=== PATIENT | female | born 1985 | race African-American/Black ===

== ENCOUNTER 2018-05-14 06:52 | Emergency (ER) | payer SELFPAY ==
[2018-05-14 07:19] VITALS: BMI 21.6
[2018-05-14] MEDS ORDERED: ACETAMINOPHEN 325 MG TABLET (FP) PO ONE (08:09)
[2018-05-14] MEDS ORDERED: IBUPROFEN 600 MG TABLET (FP) PO ONE ×2 (08:11→08:31)
--- NOTE | 2018-05-14 08:11 | PDOC ---
History of Present Illness - General Chief Complaint: Urinary Problem Stated Complaint: URINARY PROBLEM Time Seen by Provider: 05/14/18 07:30 History Source: Patient Exam Limitations: No Limitations - History of Present Illness Initial Comments: 05/14/18 08:11 Webb 32 YOF no medical history presenting with urinary frequency, urgency, dysuria and suprapubic pain x 2 days. Sharp suprapubic Pain /, taken tylenol previously with some relief. No fever or chills, dizziness or weakness.. No n/v/d, back pain. LMP 1 week ago, no bleeding or discharge. Sexually active with one partner, no STD concern. Denies tobacco or etoh use. 05/14/18 08:15 Past History - Past Medical History Allergies/Adverse Reactions: Allergies Allergy/AdvReac Type Severity Reaction Status Date / Time Penicillins Allergy Intermediate Hives Verified 05/14/18 08:54 sulfamethoxazole Allergy Intermediate Hives Verified 05/14/18 07:13 [From Bactrim] trimethoprim [From Bactrim] Allergy Intermediate Hives Verified 05/14/18 07:13 amoxicillin [Amoxicillin] Allergy Hives Verified 05/14/18 07:13 Home Medications: Ambulatory Orders Cephalexin Monohydrate [Keflex -] 500 mg PO Q8H 10 Days #30 capsule 05/14/18 Phenazopyridine HCl [Pyridium -] 100 mg PO BID PRN #6 tablet 05/14/18 COPD: No - Surgical History Abdominal Surgery: Yes (FIBROIDS REMOVED, 2 TIMES) - Reproductive History Is Patient Now?: No Cervical CA: No Dysfunctional Uterine Bleeding: No Ectopic : No Endometrial CA: No Polycystic Ovaries: No Therapeutic (s) & number: No Tubal Ligation: No - Suicide/Smoking/Psychosocial Hx Smoking Status: No Smoking History: Former smoker Have you smoked in the past 12 months: Yes Number of Cigarettes Smoked Daily: 1 Information on smoking cessation initiated: No Hx Alcohol Use: No Drug/Substance Use Hx: No Substance Use Type: None Review of Systems - Review of Systems Able to Perform ROS?: Yes Comments:: 05/14/18 08:12 Constitutional: no fevers or chills. HEENT: no headache or dizziness. CVS: no cp or syncope. Resp: no sob. Abdomen: +abdominal pain, No nausea or vomiting. : + dysuria, frequency and urgency. no hematuria or discharge/VB. MUSCULOSKELETAL: No joint pain and swelling. No neck or back pain. SKIN: no redness or skin changes, no discharge, no rash. Hematologic: no easy bruising/bleeding. NEUROLOGIC: No headache, dizziness, LOC or altered mental status. No weakness, numbness or tingling. All other systems reviewed and negative, or as documented in HPI. 05/14/18 09:16 *Physical Exam - Vital Signs Last Vital Signs Temp Pulse Resp BP Pulse Ox 97.6 F 107 H 18 123/78 100 05/14/18 07:15 05/14/18 07:15 05/14/18 07:15 05/14/18 07:15 05/14/18 07:15 - Physical Exam Comments: 05/14/18 08:13 General: Well appearing, awake and alert, NAD. HEENT: NCAT, PERRL, EOMI, clear conjunctiva, anicteric, moist mucus membranes, clear oropharynx, no oral lesions.. Neck: neck supple, FROM Resp: CTAB, normal and even respirations, no respiratory distress CVS: RRR, no murmurs, 2+ peripheral pulses throughout, no peripheral edema Abdomen: soft, +suprapubic tenderness, no peritoneal signs. no rebound or guarding Back: very mild right CVAT, normal inspection and ROM MSK: no edema, DRAPER x4, ROM intact. No clubbing or cyanosis. normal bulk and tone. Neuro: alert, oriented appropriately Skin: warm and well perfused, cap refill <2 sec, normal color Medical Decision Making - Medical Decision Making 05/14/18 08:11 Webb 32 YOF no medical history presenting with urinary frequency, urgency, dysuria and suprapubic pain x 2 days. No fevers, n/v/d, back pain. LMP 1 week ago, no bleeding or discharge. Sexually active with one partner, no STD concern. Denies tobacco or etoh use. Vitals wnl, mild tachy from pain. no fever, nontoxic appearing, tolerating PO. Given tylenol and ibuprofen for pain control. repeat VS improved, remains well appearing Most likely UTI with clinical sx, ?early pyelo with right flank ttp on percussion, but no rebound or guarding, abdomen with mild suprapubic tenderness. UA grossly positive with Leuk esterase and nitrites and WBCs, f/u urine culture. Dispo: Pt informed of my clinical impression, treatment recommendations and disposition plan. Rx pyridium x 3 days and keflex x 10 day course, to cover for early pyelo. nontoxic appearing, pyelo precautions given including worsneing signs of infection. All questions answered to patient's satisfaction and expressed understanding and comfort with this. Reasons for returning to the ED sooner discussed with the patient otherwise, follow up with primary care physician, solar process engineer & PMD referrals given. At the time of discharge, the patient is alert, clinically improved, tolerating po and verbalizes understanding of instructions. 05/14/18 09:16 *DC/Admit/Observation/Transfer Diagnosis at time of Disposition: UTI (urinary tract infection) - Discharge Dispostion Disposition: HOME Condition at time of disposition: Good Decision to Admit order: No - Prescriptions Prescriptions: Cephalexin Monohydrate [Keflex -] 500 mg PO Q8H 10 Days #30 capsule Phenazopyridine HCl [Pyridium -] 100 mg PO BID PRN #6 tablet PRN Reason: Pain Level 4 - 6 - Referrals Referrals: Blake Emmanuel MD [Staff Physician] - Bob Moy MD [Staff Physician] - [facility] [place] [facility] [Provider Group] - Patient Instructions Printed Discharge Instructions: DI for Urinary Tract Infection (UTI) Additional Instructions: your urine revealed an infection. Follow up with your physician and consultants as instructed, referrals with gynecology and primary doctor., take your medications as instructed including keflex three times a day x 10 days, monitor for signs of allergy including rash or difficulty breathing or airway involvement, stop if it does cause these life threatening symptoms.; may cause nausea and vomiting. Return if worsening symptoms including fevers, headache, vomiting, worsening flank or abdominal pain, chest pain, shortness of breath, syncope, dehydration, inability to take things by mouth/vomiting, altered mental status, or worsening concerning symptoms, which could indicate worsening infection affecting your kidneys. your medications on discharge include pyridium which may cause your urine yellow/orange for 3 days maximum as needed for urinary pain; keflex is an antibiotic for the infection. side effects may include upset stomach, abdominal pain, vomiting, or diarrhea. do not drink alcohol with your medications. - Post Discharge Activity
[2018-05-14 08:12] LABS: HCG,QUALITATIVE URINE Negative; URINE APPEARANCE TURBID; URINE BILIRUBIN NEGATIVE (<2.0 mg/dL); URINE COLOR AMBER; URINE GLUCOSE (UA) NEGATIVE (NEGATIVE); URINE KETONE NEGATIVE (NEGATIVE); URINE NITRITE POSITIVE (NEGATIVE)
[2018-05-14] MEDS ORDERED: ACETAMINOPHEN 325 MG TABLET (FP) ONE (08:31)
[2018-05-14 08:38] LABS: URINE LEUK ESTERASE 2+ (NEGATIVE); URINE PROTEIN 3+ (NEGATIVE)
[2018-05-14] MEDS ORDERED: CEPHALEXIN MONOHYDRATE 500 MG CAPSULE (UD) PO ONE (08:49)
[2018-05-14 08:51] LABS: EPI CELLS RARE /HPF (FEW); URINE BACTERIA MANY /hpf (NONE SEEN); URINE MUCUS FEW
[2018-05-14] MEDS ORDERED: CEPHALEXIN MONOHYDRATE 500 MG CAPSULE (UD) ONE (08:53)
[2018-05-14 09:13] VITALS: BP 109/85; PULSE 82; TEMP 98
== END 2018-05-14 09:20 | disposition home or self-care (01) ==
LOC: JER 06:52
DX: N39.0 Urinary tract infection, site not specified (principal); B96.89 Other specified bacterial agents as the cause of diseases classified elsewhere; Z88.0 Allergy status to penicillin; Z88.2 Allergy status to sulfonamides
CPT/HCPCS: 81003; 81015; 84703; 87086; 87186; 99283-25

== ENCOUNTER 2018-08-18 18:57 | Emergency (ER) | payer SELFPAY ==
[2018-08-18 19:07] VITALS: BP 115/51; PULSE 105; TEMP 98.5; BMI 21.2
--- NOTE | 2018-08-18 21:00 | PDOC ---
History of Present Illness - General Chief Complaint: Abscess Boil Stated Complaint: Abscess Boil Time Seen by Provider: 08/18/18 20:00 History Source: Patient Exam Limitations: No Limitations - History of Present Illness Initial Comments: 08/18/18 20:57 HISTORY OF PRESENT ILLNESS: No recent travel or sick contacts. PAST MEDICAL HISTORY: Denies past medical history SURGICAL HISTORY: Denies ALLERGIES: No known drug allergies REVIEW OF SYSTEMS General/Constitutional: Denies fever or chills. Denies weakness, weight change. HEENT: Denies change in vision. Denies ear pain or discharge. Denies sore throat. Cardiovascular: Denies chest pain or shortness of breath. Respiratory: Denies cough, wheezing, or hemoptysis. Gastrointestinal: Denies nausea, vomiting, diarrhea or constipation. Denies rectal bleeding. Genitourinary: Denies dysuria, frequency, or change in urination. Musculoskeletal: Denies joint or muscle swelling or pain. Denies neck or back pain. Skin and breasts: Denies rash or easy bruising. Neurologic: Denies headache, vertigo, loss of consciousness, or loss of sensation. Psychiatric: Denies depression or anxiety. Endocrine: Denies increased thirst. Denies abnormal weight change. Hematologic/Lymphatic: Denies anemia, easy bleeding, or history of blood clots. Allergic/Immunologic: Denies hives or skin allergy. Denies latex allergy. PHYSICAL EXAM General Appearance: Well-appearing, appropriately dressed. No apparent distress , no intoxication. HEENT: EOMI, PERRLA, normal ENT inspection, normal voice, TMs normal, pharynx normal. No conjunctival pallor. No photophobia, scleral icterus. Neck: Supple. Trachea midline. No tenderness, rigidity, carotid bruit, stridor , lymphadenopathy, or thyromegaly. Respiratory/Chest: Lungs CTAB. No shortness of breath, chest tenderness, respiratory distress, accessory muscle use. No crackles, rales, rhonchi, stridor , wheezing, dullness Cardiovascular: RRR. S1, S2. No JVD, murmur, bradycardia, tachycardia. Vascular Pulses: Dorsalis-Pedis (R): 2+, Dorsalis-Pedis (L): 2+ Gastrointestinal/Abdominal: Normal bowel sounds. Abdomen soft, non-distended. No tenderness or rebound tenderness. No organomegaly, pulsatile mass, guarding, hernia, hepatomegaly, splenomegaly. Lymphatic: No adenopathy, tenderness. Musculoskeletal/Extremities: Normal inspection. FROM of all extremities, normal capillary refill. Pelvis Stable. No CVA tenderness. No tenderness to extremities, pedal edema, swelling, erythema or deformity. Integumentary: Appropriate color, dry, warm. No cyanosis, erythema, jaundice or rash Neurologic: rail car maintenance mechanic II-XII intact. Fully oriented, alert. Appropriate mood/affect. Motor strength 5/5. No appreciable EOM palsy, facial droop or sensory deficit. Past History - Past Medical History Allergies/Adverse Reactions: Allergies Allergy/AdvReac Type Severity Reaction Status Date / Time Penicillins Allergy Intermediate Hives Verified 08/18/18 20:16 sulfamethoxazole Allergy Intermediate Hives Verified 08/18/18 20:16 [From Bactrim] trimethoprim [From Bactrim] Allergy Intermediate Hives Verified 08/18/18 20:16 amoxicillin [Amoxicillin] Allergy Hives Verified 08/18/18 20:16 Home Medications: Ambulatory Orders NK [No Known Home Medication] 08/18/18 COPD: No - Surgical History Abdominal Surgery: Yes (FIBROIDS REMOVED, 2 TIMES) - Reproductive History Cervical CA: No Dysfunctional Uterine Bleeding: No Ectopic : No Endometrial CA: No Polycystic Ovaries: No Therapeutic (s) & number: No Tubal Ligation: No - Suicide/Smoking/Psychosocial Hx Smoking Status: No Smoking History: Never smoked Have you smoked in the past 12 months: Yes Number of Cigarettes Smoked Daily: 1 Hx Alcohol Use: No Drug/Substance Use Hx: No Substance Use Type: None *Physical Exam - Vital Signs Last Vital Signs Temp Pulse Resp BP Pulse Ox 98.5 F 105 H 16 115/51 L 100 08/18/18 19:04 08/18/18 19:04 08/18/18 19:04 08/18/18 19:04 08/18/18 19:04 Moderate Sedation - Procedure Monitoring Vital Signs: Procedure Monitoring Vital Signs Temperature 98.5 F 08/18/18 19:04 Pulse Rate 105 H 08/18/18 19:04 Respiratory Rate 16 08/18/18 19:04 Blood Pressure 115/51 L 08/18/18 19:04 O2 Sat by Pulse Oximetry (%) 100 08/18/18 19:04 Procedures - Consent Consent obtained: Verbal, From Patient - Incision and Drainage I&D Site: Right: Bartholin Betadine cleansed: Yes Anesthesia: 2% Lidocaine Volume(ml): 5 Blade Size: 11 Attempts: 1 Plain Packing: No Dressing: No Progress: 08/18/18 20:59 Pt tolerated well. Medical Decision Making - Medical Decision Making 08/18/18 20:57 A/P: 33-year-old female with right sided Bartholin's cyst Exam performed with KARLI Baptiste as academic director Swelling and tenderness noted to the inner labia of the right side of the vagina Fluctuants present No erythema or induration present to area I&D of Bartholin's abscess-see procedure note for details Discharge home *DC/Admit/Observation/Transfer Diagnosis at time of Disposition: Bartholin's gland cyst - Discharge Dispostion Disposition: HOME Condition at time of disposition: Stable Decision to Admit order: No - Referrals - Patient Instructions Additional Instructions: Follow-up with her icu manager for reevaluation within the next 7-10 days. Take Tylenol or Motrin as needed for pain. Follow manufacture's instructions for appropriate dosage. Return to emergency department for any worsening pain, discharge or drainage, any other concerns. Thank you very much for choosing us to provide your emergent health care needs. - Post Discharge Activity
== END 2018-08-18 21:10 | disposition home or self-care (01) ==
LOC: JER 18:57 → JERFT 18:57
PROC: 0U9L0ZZ Drainage of Vestibular Gland, Open Approach (ICD-10-PCS; principal; 2018-08-18)
DX: N75.0 Cyst of Bartholin's gland (principal); N75.1 Abscess of Bartholin's gland
CPT/HCPCS: 99281-25

== ENCOUNTER 2019-04-03 18:12 | Emergency (ER) | payer SELFPAY ==
--- NOTE | 2019-04-03 18:20 | PDOC ---
Rapid Medical Evaluation Time Seen by Provider: 04/03/19 18:19 Medical Evaluation: Allergies Allergy/AdvReac Type Severity Reaction Status Date / Time Penicillins Allergy Intermediate Hives Verified 08/18/18 20:16 sulfamethoxazole Allergy Intermediate Hives Verified 08/18/18 20:16 [From Bactrim] trimethoprim [From Bactrim] Allergy Intermediate Hives Verified 08/18/18 20:16 amoxicillin [Amoxicillin] Allergy Hives Verified 08/18/18 20:16 04/03/19 18:20 CC: right labial swelling PE: deferred Orders: nothing Patient will proceed to ED for continued evaluation. 04/03/19 18:20 Discharge Disposition - Diagnosis Bartholin's gland cyst - Referrals - Patient Instructions - Post Discharge Activity
[2019-04-03 18:22] VITALS: BP 147/81; PULSE 100; TEMP 98.6; BMI 21.7
--- NOTE | 2019-04-03 19:50 | PDOC ---
History of Present Illness - General Chief Complaint: Abscess Boil Stated Complaint: VAGINAL BLEEDING Time Seen by Provider: 04/03/19 18:19 History Source: Patient Exam Limitations: No Limitations Past History - Travel Traveled outside of the country in the last 30 days: No Close contact w/someone who was outside of country & ill: No - Past Medical History Allergies/Adverse Reactions: Allergies Allergy/AdvReac Type Severity Reaction Status Date / Time Penicillins Allergy Intermediate Hives Verified 04/07/19 08:49 sulfamethoxazole Allergy Intermediate Hives Verified 04/07/19 08:49 [From Bactrim] trimethoprim [From Bactrim] Allergy Intermediate Hives Verified 04/07/19 08:49 amoxicillin [Amoxicillin] Allergy Hives Verified 04/07/19 08:49 Home Medications: Ambulatory Orders NK [No Known Home Medication] 08/18/18 Cephalexin Monohydrate [Keflex -] 500 mg PO BID #14 capsule 04/03/19 Ibuprofen 600 mg PO Q6H #30 tablet 04/03/19 COPD: No - Surgical History Abdominal Surgery: Yes (FIBROIDS REMOVED, 2 TIMES) - Reproductive History Cervical CA: No Dysfunctional Uterine Bleeding: No Ectopic : No Endometrial CA: No Polycystic Ovaries: No Therapeutic (s) & number: No Tubal Ligation: No - Suicide/Smoking/Psychosocial Hx Smoking Status: No Smoking History: Never smoked Have you smoked in the past 12 months: Yes Number of Cigarettes Smoked Daily: 1 Hx Alcohol Use: No Drug/Substance Use Hx: No Substance Use Type: None Review of Systems - Review of Systems Able to Perform ROS?: Yes Comments:: 04/03/19 20:34 CONSTITUTIONAL: Absent: fever, chills, diaphoresis, generalized weakness, malaise, loss of appetite HEENT: Absent: rhinorrhea, nasal congestion, throat pain, throat swelling, difficulty swallowing, mouth swelling, ear pain, eye pain, visual Changes GENITOURINARY: Absent: dysuria, frequency, urgency, hesitancy, hematuria, flank pain, genital pain SKIN: Present: bartholin's gland cyst Absent: rash, itching, pallor NEUROLOGIC: Absent: headache, focal weakness or paresthesias, dizziness, unsteady gait, seizure, mental status changes, bladder or bowel incontinence PSYCHIATRIC: Absent: anxiety, depression, suicidal or homicidal ideation, hallucinations. Is the patient limited Swedish proficient: No *Physical Exam - Vital Signs Last Vital Signs Temp Pulse Resp BP Pulse Ox 98.6 F 100 H 16 147/81 100 04/03/19 18:20 04/03/19 18:20 04/03/19 18:20 04/03/19 18:20 04/03/19 18:20 - Physical Exam Comments: 04/03/19 20:48 GENERAL: The patient is awake, alert, and fully oriented, in no acute distress. HEAD: Normal with no signs of trauma. EYES: Pupils equal, round and reactive to light, extraocular movements intact, sclera anicteric, conjunctiva clear. EXTREMITIES: Normal range of motion, no edema. NEUROLOGICAL: Normal speech, normal gait. PSYCH: Normal mood, normal affect. SKIN: large R bartholins cyst present, no secondary signs of infection. Warm, Dry, normal turgor, no rashes or lesions noted. Procedures - Incision and Drainage I&D Site: Right: Bartholin (additional small cyst noted medially to the Labia minora) Betadine cleansed: Yes Anesthesia: 1% Lidocaine Volume(ml): 5 Blade Size: 11 Attempts: 1 Iodinated Packin/4 in Plain Packing: Yes Medical Decision Making - Medical Decision Making 04/03/19 20:05 The patient is a 33 y/o F with PMH of Bartholin's cysts presents to the ER for a new bartholin's cyst. the patient states it is on the R side and started approximately 2 days ago. She states it is now uncomfortable to sit so she presents to the ER for evaluation. She is currently on her menstrual cycle. Denies fevers, chills, nausea, vomiting, diarrhea, pelvic pain, dysuria and hematuria A/P: Bartholin's cyst Fluctuant large R Bartholin's cyst. I&D performed. See procedure note; copious amount of fluid drained Packing placed Pt told to follow up in two days for re-evaluation Pt placed on Keflex DC home I discussed the physical exam findings, ancillary test results and final diagnoses with the patient. I answered all of the patient's questions. The patient was satisfied with the care received and felt comfortable with the discharge plan and treatment plan. The Patient agrees to follow up with the primary care physician/specialist within 24-72 hours. Return precautions were given. *DC/Admit/Observation/Transfer Diagnosis at time of Disposition: Bartholin's gland cyst - Discharge Dispostion Disposition: HOME Condition at time of disposition: Stable - Prescriptions Prescriptions: Cephalexin Monohydrate [Keflex -] 500 mg PO BID #14 capsule Ibuprofen 600 mg PO Q6H #30 tablet - Referrals Referrals: Tatyana Gonzalez MD [Staff Physician] - - Patient Instructions Printed Discharge Instructions: DI for Bartholin Gland Cyst Additional Instructions: you were evaluated for her Bartholin cyst today. It was drained Please take the Bactrim and Keflex as directed for 1 week. Please return in 2 days to have the wound checked and the packing pulled. Return to the ER for fever, worsening pain, or if you have any changes in your symptoms. - Post Discharge Activity
== END 2019-04-03 20:28 | disposition home or self-care (01) ==
LOC: JERFT 18:12
DX: N75.0 Cyst of Bartholin's gland (principal); Z88.0 Allergy status to penicillin; Z88.1 Allergy status to other antibiotic agents; Z88.2 Allergy status to sulfonamides
CPT/HCPCS: 99281-25

== ENCOUNTER 2019-04-05 11:24 | Emergency (ER) | payer SELFPAY ==
[2019-04-05 11:32] VITALS: BP 120/73; PULSE 85; TEMP 98.7; BMI 21.7
[2019-04-05] MEDS ORDERED: LIDOCAINE HCL 1%, 10 MG/ML (50 mL VIAL) SQ ONE (12:58)
[2019-04-05] MEDS ORDERED: LIDOCAINE HCL 1%, 10 MG/ML (20ML VIAL) ONE (13:02)
--- NOTE | 2019-04-05 13:47 | PDOC ---
History of Present Illness - General Chief Complaint: Revisit,Wound Recheck Stated Complaint: WOUND CHECK, HIVES FROM ANTIBIOTICS Time Seen by Provider: 04/05/19 12:00 - History of Present Illness Initial Comments: 04/05/19 13:45 33 y/o F return for wound check 2 days s/p I&D. She did take keflex for 1 day but discontinued the medication because of a rash 04/05/19 13:46 Past History - Past Medical History Allergies/Adverse Reactions: Allergies Allergy/AdvReac Type Severity Reaction Status Date / Time Penicillins Allergy Intermediate Hives Verified 04/05/19 11:31 sulfamethoxazole Allergy Intermediate Hives Verified 04/05/19 11:31 [From Bactrim] trimethoprim [From Bactrim] Allergy Intermediate Hives Verified 04/05/19 11:31 amoxicillin [Amoxicillin] Allergy Hives Verified 04/05/19 11:31 Home Medications: Ambulatory Orders NK [No Known Home Medication] 08/18/18 Cephalexin Monohydrate [Keflex -] 500 mg PO BID #14 capsule 04/03/19 Ibuprofen 600 mg PO Q6H #30 tablet 04/03/19 COPD: No - Surgical History Abdominal Surgery: Yes (FIBROIDS REMOVED, 2 TIMES) - Reproductive History Cervical CA: No Dysfunctional Uterine Bleeding: No Ectopic : No Endometrial CA: No Polycystic Ovaries: No Therapeutic (s) & number: No Tubal Ligation: No - Suicide/Smoking/Psychosocial Hx Smoking Status: No Smoking History: Never smoked Have you smoked in the past 12 months: Yes Number of Cigarettes Smoked Daily: 1 Information on smoking cessation initiated: No Hx Alcohol Use: No Drug/Substance Use Hx: No Substance Use Type: None Review of Systems - Review of Systems Constitutional: No: Fever *Physical Exam - Vital Signs Last Vital Signs Temp Pulse Resp BP Pulse Ox 98.7 F 85 18 120/73 100 04/05/19 11:27 04/05/19 11:27 04/05/19 11:27 04/05/19 11:27 04/05/19 11:27 - Physical Exam Comments: 04/05/19 13:48 Is a large area of fluctuance on the right labia majora foreign body was removed. There was a piercing in place there is no warmth erythema Medical Decision Making - Medical Decision Making 04/05/19 13:49 The mass was anesthetized aspeptically with 10 mL of 1% lidocaine without epinephrine and an 11 blade was used to make an incision at the posterior aspect of the right labia majora. There was serial [place] his fluid expressed the area was deloculated and the capsule partially removed. I do not know if I remove the entire capsule. Packed with quarter inch iodoform this was tolerated well. Dry sterile dressing was placed. No antibiotics required at this time. There was no purulent drainage. Plan is to return to the emergency room in 2 days for packing removal and wound check. *DC/Admit/Observation/Transfer Diagnosis at time of Disposition: Bartholin's gland cyst - Discharge Dispostion Disposition: HOME Condition at time of disposition: Stable Decision to Admit order: No - Referrals Referrals: Howard Felix MD [Staff Physician] - - Patient Instructions Additional Instructions: Try to keep the packing in place for the next 48 hours. Return to the emergency room in 48 hours for packing removal and wound check return to the emergency room sooner if problems develop. Follow-up with MANAGER OF SOFTWARE in 1-2 days for further evaluation and treatment options as well. Tylenol and [place] as directed for pain - Post Discharge Activity
== END 2019-04-05 14:03 | disposition home or self-care (01) ==
LOC: JERFT 11:24
PROC: 0U9L0ZZ Drainage of Vestibular Gland, Open Approach (ICD-10-PCS; principal; 2019-04-05)
DX: N75.0 Cyst of Bartholin's gland (principal); Z88.0 Allergy status to penicillin; Z88.1 Allergy status to other antibiotic agents; Z88.2 Allergy status to sulfonamides
CPT/HCPCS: 99281-25

== ENCOUNTER 2019-04-07 08:45 | Emergency (ER) | payer SELFPAY ==
[2019-04-07 08:49] VITALS: BP 118/70; PULSE 91; TEMP 98; BMI 21.7
--- NOTE | 2019-04-07 09:47 | PDOC ---
Suture Removal/Wound Check HPI - History of Present Illness Chief Complaint: Revisit,Wound Recheck Stated Complaint: REVISIT / CYSTS Time Seen by Provider: 04/07/19 08:55 History Source: Yes: Patient Exam Limitations: Yes: No Limitations Treated at: [facility] ED - Previous ED Treatment Type of procedure performed on last visit: Yes: I&D of Abscess Tetanus Immunization: Yes: Up to Date - Onset of Previous Treatment Comment:: 04/07/19 12:28 She was seen here 2 days ago and I&D performed for large right Bartholin's cyst. There was no catheter available therefore patient was packed with iodoform gauze with a significant amount of drainage noted. States stopped using the Keflex where she had been prescribed due to an ALLERGIC reaction and states still has swelling but minimal tenderness. Denies fever, Past History - Travel Traveled outside of the country in the last 30 days: No Close contact w/someone who was outside of country & ill: No - Past Medical History Allergies/Adverse Reactions: Allergies Allergy/AdvReac Type Severity Reaction Status Date / Time Penicillins Allergy Intermediate Hives Verified 04/07/19 08:49 sulfamethoxazole Allergy Intermediate Hives Verified 04/07/19 08:49 [From Bactrim] trimethoprim [From Bactrim] Allergy Intermediate Hives Verified 04/07/19 08:49 amoxicillin [Amoxicillin] Allergy Hives Verified 04/07/19 08:49 Home Medications: Ambulatory Orders Cephalexin Monohydrate [Keflex -] 500 mg PO BID #14 capsule 04/03/19 Ibuprofen 600 mg PO Q6H #30 tablet 04/03/19 Clindamycin [Cleocin -] 300 mg PO TID #21 capsule 04/07/19 COPD: No - Surgical History Abdominal Surgery: Yes (FIBROIDS REMOVED, 2 TIMES) - Reproductive History Cervical CA: No Dysfunctional Uterine Bleeding: No Ectopic : No Endometrial CA: No Polycystic Ovaries: No Therapeutic (s) & number: No Tubal Ligation: No - Suicide/Smoking/Psychosocial Hx Smoking Status: No Smoking History: Never smoked Have you smoked in the past 12 months: Yes Number of Cigarettes Smoked Daily: 1 Hx Alcohol Use: No Drug/Substance Use Hx: No Substance Use Type: None Suture Removal/Wound Check PE - Physical Exam Laceration/Wound Check Symptoms: reports: Pain, Discharge. denies: Fever, Chills Current Severity Level: Mild Maximum Severity Level: Moderate *Review of Systems - Review of Systems Able to Perform ROS?: Yes Constitutional: Yes: Symptoms Reported, See HPI. No: Fever, Malaise HEENTM: No: Symptoms Reported Respiratory: No: Symptoms reported : Yes: Symptoms Reported, See HPI, Pain, Lesions (swelling with packing , removed with purulent drainage expressed. ) Neurological: Yes: Symptoms reported All Other Systems: Reviewed and Negative *Physical Exam - Vital Signs Last Vital Signs Temp Pulse Resp BP Pulse Ox 98.0 F 91 H 16 118/70 100 04/07/19 08:46 04/07/19 08:46 04/07/19 08:46 04/07/19 08:46 04/07/19 08:46 - Physical Exam General Appearance: Yes: Nourished, Appropriately Dressed, Apparent Distress, Mild Distress HEENT: positive: CHU, Normal ENT Inspection, TMs Normal, Pharynx Normal Neck: positive: Supple. negative: Lymphadenopathy (R), Lymphadenopathy (L) Respiratory/Chest: positive: Lungs Clear, Normal Breath Sounds Female Pelvic Exam: positive: Bartholin mass. negative: normal external exam ( packing to right Bartholin's abscess with purulent drainage noted. Packing was removed and noted to have significant amount of purulent drainage and swelling retained. Wound was cleaned, and Word catheter was inserted into incision site) Gastrointestinal/Abdominal: positive: Soft. negative: Tender Extremity: positive: Normal Capillary Refill Integumentary: positive: Dry, Warm, Pale Neurologic: positive: evaporator helper II-XII NML intact, Fully Oriented, Alert, Normal Mood/ Affect, Normal Response, Motor Strength 5/5 Procedures - Incision and Drainage I&D Site: Right: Bartholin (packing removed and word cyst catheter inserted into wound site) Betadine cleansed: Yes Complications: none Dressing: Yes *DC/Admit/Observation/Transfer Diagnosis at time of Disposition: Bartholin's gland cyst, Bartholin's gland infection - Discharge Dispostion Disposition: HOME Condition at time of disposition: Stable Decision to Admit order: No - Prescriptions Prescriptions: Clindamycin [Cleocin -] 300 mg PO TID #21 capsule - Referrals - Patient Instructions Printed Discharge Instructions: DI for Wound Infection Additional Instructions: Rest, keep area elevated. Avoid strenuous activity or exercise until wound is healed Use hot soaks to area to bring more blood to the surface and encourage drainage May change dressings as needed to keep clean - trying to avoid removal of packing until seen by WATER TREATMENT SPECIALIST . Allow water from shower to wash area thoroughly for 2-3 minutes, and pat dry upon exit of shower and replace dressing. Change his dressing daily until WATER TREATMENT SPECIALIST evaluates May use Tylenol or Motrin for mild pain relief Continue all medications as prescribed Followup with private physician in 2-3 days for wound check Return to emergency Department for worsening swelling, pain, redness, fevers as needed - Post Discharge Activity Forms/Work/School Notes: Back to Work
== END 2019-04-07 09:53 | disposition home or self-care (01) ==
LOC: JERFT 08:45
DX: Z48.01 Encounter for change or removal of surgical wound dressing (principal)
CPT/HCPCS: 99281-25